=== PATIENT | male | born 1945 | race Caucasian/White ===

== ENCOUNTER → 2020-11-01 | Outpatient (CLI) | payer MEDICARE | END | disposition home or self-care (01) | LOC: STAR 07:57 | PROVIDERS: ATTEND Internal Medicine | DX: Z01.818 Encounter for other preprocedural examination (principal); K63.5 Polyp of colon; R00.1 Bradycardia, unspecified; I45.10 Unspecified right bundle-branch block; Z20.822 Contact with and (suspected) exposure to COVID-19 | CPT/HCPCS: 87635; 93005 ==

== ENCOUNTER 2020-11-06 05:39 | Day surgery (SDC) | payer MEDICARE ==
[~2020-11-06] VITALS: Ht 172.7 cm; Wt 70.0 kg
[2020-11-06 06:37] VITALS: BP 148/80
[2020-11-06] MEDS ORDERED: MULT-658 PO (06:49)
[2020-11-06] MEDS ORDERED: LACTATED RINGERS 1,000 ML IV SCH (07:00)
[2020-11-06] MEDS ORDERED: CHLORHEXIDINE 15 ML UDC MM ONE (07:00)
[2020-11-06] MEDS ORDERED: LIDOCAINE-MPF 2% ,5ML ONE (07:18)
[2020-11-06] MEDS ORDERED: PROPOFOL 10 MG/ML, 20ML ONE ×2 (07:18→08:12)
[2020-11-06] MEDS ORDERED: FENTANYL PF 100 MCG/2ML ONE (07:18)
[2020-11-06] MEDS ORDERED: ONDANSETRON 2MG/ML, 2ML IVPush PRN (07:30)
[2020-11-06] MEDS ORDERED: FENTANYL PF 100 MCG/2ML IV PRN (07:30)
[2020-11-06] MEDS ORDERED: ACETAMINOPHEN 325 MG TABLET PO PRN (07:30)
== END 2020-11-06 10:00 | disposition home or self-care (01) ==
LOC: OUT 05:39
PROVIDERS: ATTEND Internal Medicine
DX: D12.5 Benign neoplasm of sigmoid colon (principal); K57.30 Diverticulosis of large intestine without perforation or abscess without bleeding; K21.9 Gastro-esophageal reflux disease without esophagitis; Z88.5 Allergy status to narcotic agent
CPT/HCPCS: 45381; 45385; 88305; A4648; J2704; J3010; J7120